=== PATIENT | male | born 1980 | race Caucasian/White ===

== ENCOUNTER → 2022-01-22 | Outpatient (CLI) | payer OTHER ==
[~2022-01-22] MED LIST: AUGMENTIN PO; CLONIDINE HCL0.2 MG PO; COREG 12.5MG12.5 MG PO; CYMBALTA60 MG PO; HYDRALAZINE HCL25 MG PO; HYDROCHLOROTHIA50 MG PO; LISINOPRIL40 MG PO; MEDROL4 MG PO; METFORMIN HCL500 MG PO; NORVASC10 MG PO; PROAIR HFA8.5 GM INH; SIMVASTATIN20 MG PO
[2022-01-22 09:52] LABS: HEMOGLOBIN 13.7 gm/dl (14.0-17.5); RED BLOOD COUNT 4.45 M/UL (4.20-5.50); WHITE BLOOD COUNT 11.1 K/UL (4.5-11.0)
[2022-01-22 10:16] LABS: BUN/CREATININE RATIO 19 (0-10)
== END ==
LOC: OPSV2 09:00
PROVIDERS: Anesthesiology
DX: Z01.818 Encounter for other preprocedural examination (principal)
CPT/HCPCS: 71045; 80048; 85025; 93005

== ENCOUNTER → 2022-01-24 | Day surgery (SDC) | payer OTHER ==
[~2022-01-24] VITALS: Ht 195.6 cm; Wt 137.9 kg
== END | disposition home or self-care (01) ==
LOC: OR 06:41
DX: M75.101 Unspecified rotator cuff tear or rupture of right shoulder, not specified as traumatic (principal); S43.431A Superior glenoid labrum lesion of right shoulder, initial encounter; M75.51 Bursitis of right shoulder; M19.011 Primary osteoarthritis, right shoulder; M65.811 Other synovitis and tenosynovitis, right shoulder; M75.41 Impingement syndrome of right shoulder; X58.XXXA Exposure to other specified factors, initial encounter; I11.9 Hypertensive heart disease without heart failure; E78.5 Hyperlipidemia, unspecified; J44.9 Chronic obstructive pulmonary disease, unspecified; F41.9 Anxiety disorder, unspecified; E11.9 Type 2 diabetes mellitus without complications; Z88.5 Allergy status to narcotic agent; Z79.84 Long term (current) use of oral hypoglycemic drugs; Z79.899 Other long term (current) drug therapy
CPT/HCPCS: C1713; J0171; J0690; J1100; J2001; J2370; J2405; J2704; J2710; J2795